=== PATIENT | female | born 2000 | race Caucasian/White ===

== ENCOUNTER 2021-08-05 20:11 | Emergency (ER) | payer OTHER, SELFPAY ==
[2021-08-05 20:12] VITALS: BP 134/89; PULSE 129; RESP 15; TEMP 36.1; O2SAT 98; BMI 31.7
--- NOTE | 2021-08-05 20:41 | EX.ED.DYSGE1 ---
HPI History of Present Illness Chief Complaint: General Illness Informant: patient Narrative Narrative: 20-year-old female states that earlier today she began to experience numbness and tingling of the lower extremities that has subsequently spread over her body. She states it is also painful. She began to have some light sensitivity and noise sensitivity which is not uncommon for her when she gets a migraine. She took some Benadryl and some ibuprofen as well as her abortive Nurtec. She was able to sleep but the symptoms persisted. She notes some associated nausea. She states that she felt perhaps that she was going to be passing out which is not uncommon with her POTS. 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 Home Medications metoprolol succinate 25 mg PO DAILY 08/05/21 [History Last Taken Unknown] midodrine 10 mg PO TID 08/05/21 [History Last Taken Unknown] norgestimate-ethinyl estradiol [Bandera-Linyah] 1 tab PO DAILY 08/05/21 [History Last Taken Unknown] pantoprazole 40 mg PO DAILY 08/05/21 [History Last Taken Unknown] rimegepant [Nurtec ODT] mg PO 08/05/21 [History Last Taken Unknown] venlafaxine 75 mg PO DAILY 08/05/21 [History Last Taken Unknown] zonisamide 25 mg PO DAILY 08/05/21 [History Last Taken Unknown] zonisamide 50 mg PO QHS 08/05/21 [History Last Taken Unknown] Allergy/AdvReac Type Severity Reaction Status Date / Time metoclopramide [From Reglan] Allergy Other Verified 08/05/21 20:16 rizatriptan [From Maxalt] Allergy Anaphylaxis Verified 08/05/21 20:17 Social History (Updated 08/05/21 @ 20:[address] Andrzej Pruett DO) current gender identity: female Smoking Status: Never smoker ROS ROS ED Constitutional Constitutional ED: Denies chills, fever(s) or weight loss Eyes Eyes: Denies change in vision or diplopia ENT ENT ED: Denies ear pain, rhinorrhea or sore throat Cardiovascular Cardiovascular: Denies chest pain, orthopnea, palpitations or racing heartbeat Respiratory/Chest Respiratory/Chest: Denies cough, dyspnea or orthopnea Gastrointestinal Gastrointestinal: Reports nausea; Denies abdominal pain, diarrhea or vomiting Genitourinary Genitourinary ED: Denies dysuria, hematuria or urinary frequency Musculoskeletal Musculoskeletal: Denies arthralgias or myalgias Integumentary Denies abscess or rash Neurologic Neurologic: Reports headache(s) and paresthesias; Denies weakness Psychiatric Psychiatric: Denies anxiety, depression, suicidal ideation or suicidal thoughts Endocrine Endocrinology: Denies polydipsia, polyphagia or polyuria Allergic/Immunologic Allergic/Immunologic ED: Denies mouth swelling, tongue swelling or urticaria EXAM Physical Exam Const Vital Signs: 08/05/21 20:12 08/05/21 20:38 Temperature 97.0 F L Temperature Source Temporal Pulse Rate 129 H Respiratory Rate 15 Respiratory Pattern Normal Blood Pressure 134/89 H Blood Pressure Mean 104 Pulse Ox 98 Oxygen Delivery Method Room Air Positive well nourished and well developed General Appearance ED: well developed HEENT Reports normocephalic, head/scalp atraumatic, TM's clear and moist mucous membranes Negative for trauma Tympanic Membrane ED: Yes TM's clear Eyes PERRL and EOMs intact bilaterally Neck no lymphadenopathy, supple and no JVD Resp normal respiratory effort and clear to auscultation bilaterally Cardio regular rate, regular rhythm and no murmurs GI normal to inspection, nondistended, normoactive bowel sounds and non-tender Palpation: soft Back/Spine no CVA tenderness and normal ROM Extremity normal to inspection General Extremety ED: Negative for edema General Extremity: Negative for edema Neuro oriented x3 and CN's II-XII intact bilaterally Sensorium / Orientation: alert Motor Exam: strength 5/5 throughout Psych mental status grossly normal Mood & Affect: Negative for depressed or tearful Skin no rashes or lesions noted and no wounds MDM MDM MDM Narrative Medical decision making narrative: Patient received Toradol Zofran and IV fluids. Basic blood work shows a white count of 5 and a platelet count of 201. CMP showed a glucose of 150. Her COVID test is positive. Plan will be for the patient to be discharged home. Instructions to follow-up as needed return if worsening or concerns Lab Data Attestation: I reviewed the patient's lab results. Labs: Laboratory Results - last 24 hr 08/05/21 08/05/21 20:50 20:50 WBC 5.0 RBC 4.71 Hgb 12.8 Hct 38.2 MCV 81.1 MCH 27.2 MCHC 33.5 RDW Std Deviation 39.3 RDW Coeff of Jayson 13.3 Plt Count 201 MPV 10.2 Immature Gran % (Auto) 0.800 Neut % (Auto) 84.8 H Lymph % (Auto) 5.6 L Bandera % (Auto) 8.2 Eos % (Auto) 0.4 Baso % (Auto) 0.2 Absolute Neuts (auto) 4.2 Absolute Lymphs (auto) 0.28 L Nucleated RBC % 0 Differential Comment SCANNED Sodium 135 L Potassium 4.5 Chloride 106 Carbon Dioxide 24.0 Anion Gap 5 BUN 8 Creatinine 0.80 Estim Creat Clear Calc 116.25 Est GFR (MDRD) Af Amer 115 Est GFR (MDRD) Non-Af 95 BUN/Creatinine Ratio 10.0 Glucose 150 H Calcium 9.1 Total Bilirubin 0.30 AST 40 H ALT 37 Alkaline Phosphatase 87 Total Protein 6.8 Albumin 3.3 Globulin 3.5 Albumin/Globulin Ratio 0.9 Discharge Plan Triage Chief Complaint: General Illness ED Provider: Andrzej Pruett Dx/Rx/DC Orders Clinical Impression: COVID-19 Instructions: Coronavirus Disease 2019 (COVID-19): Caring for Yourself or Others Prescriptions: No Action norgestimate-ethinyl estradiol [Bandera-Linyah] 0.25-35 mg-mcg tablet 1 tab PO DAILY RF: 0 venlafaxine 75 mg capsule,extended release 24hr 75 mg PO DAILY RF: 0 pantoprazole 40 mg tablet,delayed release (DR/EC) 40 mg PO DAILY RF: 0 metoprolol succinate 25 mg tablet extended release 24 hr 25 mg PO DAILY RF: 0 midodrine 10 mg tablet 10 mg PO TID RF: 0 zonisamide 25 mg capsule 25 mg PO DAILY RF: 0 zonisamide 25 mg capsule 50 mg PO QHS RF: 0 Nurtec ODT 75 mg tablet,disintegrating PO RF: 0 Primary Care Provider: Care Physician,No Primary Referrals: Care Physician,No Primary [Primary Care Provider] - Disposition Disposition: Home, Self Care
[2021-08-05 20:59] LABS: Absolute Lymphocyte Count 0.28 X10^3/uL (0.83-4.51); Absolute Neutrophil Count 4.2 X10^3/uL (2.0-7.7); Basophil# 0.01 X10^3/uL; Basophil% 0.2 % (0-1); Eosinophil# 0.02 X10^3/uL; Eosinophils% 0.4 % (0-5); Hematocrit 38.2 % (37-47); Hemoglobin 12.8 g/dL (12.0-15.0); Lymphocyte # 0.28 X10^3/ul (0.83-4.51); Lymphocyte % 5.6 % (19-41); Mean Corp Hgb Conc 33.5 g/dL (32-36); Mean Corpuscular Hgb 27.2 pg (27.0-32.0); Mean Corpuscular Volume 81.1 fL (81-99); Mean Platelet Vol. 10.2 fl (6.2-12.0); Monocyte# 0.41 X10^3/uL; Monocyte% 8.2 % (0-10); NRBC Flagged by Analyzer 0 % (0-5); Neutrophil # 4.22 X10^3/uL (2.7-7.7); Neutrophil % 84.8 % (47-70); POSITIVE DIFFERENTIAL YES; Platelet Count 201 K/mm3 (150-450); RBC Distribution Width CV 13.3 % (11.6-14.6); RBC Distribution Width SD 39.3 fl (35.1-43.9); Red Blood Count 4.71 M/mm3 (4.2-5.4)
[2021-08-05] MEDS: Ondansetron 4 MG/2 ML Vial IV (20:59)
[2021-08-05] MEDS: 0.9% Normal Saline 1,000 ML 1000 ML IV (20:59)
[2021-08-05] MEDS: Ketorolac 30 MG/ML Syringe IV (20:59)
[2021-08-05 21:06] LABS: Differential Indicated SCAN CRITERIA MET
[2021-08-05 21:54] LABS: ALB/GLOB Ratio 0.9 RATIO (0.9-2.4); AST(SGOT) 40 U/L (15-37); Alanine Aminotransfer ALT/SGPT 37 U/L (13-56); Albumin, Serum 3.3 g/dL (3.2-5.0); Alkaline Phosphatase 87 U/L (45-117); Anion Gap 5 (5-15); BUN 8 mg/dL (7-18); Calcium,Total 9.1 mg/dL (8.5-10.1); Chloride 106 mmol/L (98-107); EST Glomerular Filtration Rate 95 mL/min (>60); Est Glom Filt Rate - Afr Amer 115 mL/min (>60); Estimated Creatinine Clearance 116.25 ml/min; Globulin 3.5 g/dL (2.2-4.2); Glucose 150 mg/dL (74-106); Potassium 4.5 mmol/L (3.5-5.1); Protein, Total 6.8 g/dL (6.4-8.2); Sodium Level 135 mmol/L (136-145)
[2021-08-05 21:57] LABS: Differential Comment SCANNED
[2021-08-05 22:15] VITALS: BP 119/78; PULSE 100; RESP 18; O2SAT 99
[2021-08-05 22:16] LABS: Internal QC Validated? YES +Cl - CLEAR BKGD; Pregnancy, Serum, hCG Quali. NEGATIVE Negative
== END 2021-08-05 22:15 | disposition home or self-care (01) ==
PROVIDERS: Emergency Provider Emergency Medicine; Visit Provider Emergency Medicine
DX: U07.1 COVID-19 (principal); I49.8 Other specified cardiac arrhythmias; J45.909 Unspecified asthma, uncomplicated; Z79.899 Other long term (current) drug therapy
CPT/HCPCS: 80053; 84703; 85025; 87811; 96361; 96374; 96375; 99282; J7030; A4216; J2405